=== PATIENT | male | born 1960 | race Caucasian/White ===

== ENCOUNTER 2020-12-06 21:09 | Inpatient (IN) | payer OTHER ==
[~2020-12-06] VITALS: Ht 177.8 cm; Wt 148.0 kg
[2020-12-06 21:15] VITALS: BP 140/90
[2020-12-06] MEDS: guaiFENesin DM 600/30MG 1 TAB TAB.ER.12H PO PRN (22:49)
[2020-12-06] MEDS: HYDROcodone/APAP 5/325MG 1 TAB TABLET PO PRN (22:54)
[2020-12-06] MEDS ORDERED: AZITHROMYCIN 500 MG in IV NORMAL SALINE 250ML 250 ML IV ONE (23:00)
[2020-12-06 23:26] VITALS: BP 168/91
[2020-12-07] MEDS ORDERED: TRIA1TAB5 PO (00:09)
[2020-12-07] MEDS ORDERED: AMLO-187 PO (00:09)
[2020-12-07] MEDS ORDERED: OMEP20TA8 PO (00:09)
[2020-12-07 03:00] VITALS: BP 138/78
[2020-12-07 07:00] VITALS: BP 138/82
[2020-12-07] MEDS ORDERED: FLU VACC QS 2020-21(6MOS+)/PF 0.5 ML SYRINGE. VAX IM ONE (09:00)
[2020-12-07] MEDS: DEXAMETHASONE SOD PHOS 4 MG/ML VIAL IVP SCH (09:41)
[2020-12-07] MEDS: HYDROcodone/APAP 5/325MG 1 TAB TABLET PO PRN ×3 (09:51→22:00)
[2020-12-07 11:00] VITALS: BP 125/86
--- NOTE | 2020-12-07 11:08 | PDOC ---
PULMONARY PROGRESS NOTES DATE: 12/07/20 TIME: 11:07 Vitals Vital Signs Date Time Temp Pulse Resp B/P (MAP) Pulse Ox O2 Delivery O2 Flow Rate FiO2 12/07/20 08:00 Nasal Cannula 4.0 12/07/20 07:00 96.6 64 138/82 (100) 96 96.6 12/07/20 03:00 20 Labs Laboratory Tests Test 12/06/20 23:30 12/07/20 04:00 Troponin I Quantitative 0.487 ng/mL (0.000-0.055) 0.444 ng/mL (0.000-0.055) Laboratory Tests Test 12/06/20 23:30 12/07/20 04:00 Troponin I Quantitative 0.487 ng/mL (0.000-0.055) 0.444 ng/mL (0.000-0.055) Medications Active Scripts Medications Dose Route/Sig Max Daily Dose Days Date Category Triamterene-Hctz 75-50 Mg Tab (Triamterene/Hydrochlorothiazid) 1 Each Tablet 0.5 Tab PO DAILY 12/07/20 Reported Omeprazole 20 Mg Tablet.dr 20 Mg PO DAILY 12/07/20 Reported Amlodipine Besylate 10 Mg Tablet 10 Mg PO DAILY 12/07/20 Reported Impression . CONSULT DICTATED AGREE WITH CURRENT RX SEE ORDERS TO FAR OUT FOR REMDESIVIR THanks LILA JEROME MD Dec 07, 2020 11:08
--- NOTE | 2020-12-07 11:36 | HP ---
ADMIT DATE: 12/06/2020 HISTORY OF PRESENT ILLNESS: The patient is a 60-year-old male patient who apparently tested positive about 9 days ago. His parents both were positive for coronavirus. In fact, his mother at [facility] recently. However, his and his son were negative. Apparently, he has been having shortness of breath for the past week. Apparently noticed that he was having hard time breathing and it was recommended for him to come to the Emergency Room by his primary care physician via telehealth. He stated that shortness of breath started worsening over the last 2-3 days. He thought that he was starting getting better; however, on the morning of admission he was having severe shortness of breath. He was unable to walk to the bathroom on his own. He was then directed to come to the Emergency Room where he was evaluated. Apparently, his pulse oximeter was only 80% at home. He has been taking [id number] medication at home. He was extensively evaluated in the Emergency Room, has had lab work as well as imaging studies. His lab work showed CBC that was unremarkable. His chemistry showed that his troponin was high at 0.537 and his C-reactive protein was high at 145 mg/dL. D-dimer was elevated at 1.41 and his toxic screen was unremarkable. His influenza A and B were negative. Has had chest x-ray, which showed patchy airspace opacities, which may reflect pneumonic infiltrate. Given his elevated D-dimer, he underwent CT angio of the chest, which basically showed no evidence of main lobar or proximal segmental pulmonary embolus. He has bilateral diffuse patchy consolidation and ground glass opacities compatible with atypical viral pneumonia. His mediastinal hilar lymphadenopathy, likely reactive, aneurysmal dilatation of the ascending aorta measuring up to 4.6 cm. The heart, pericardium and thoracic vessels with mild cardiomegaly with no pericardial effusion, has normal variant common origin of the brachiocephalic and left common carotid arteries. No coronary artery atherosclerotic calcification, although the study is not optimized for coronary assessment. He also has degenerative changes of thoracic spine. His abdomen showed mildly dilated gallbladder measuring up to 5.1 cm in diameter, nonspecific, but no secondary signs of acute cholecystitis. The patient was treated with IV antibiotic in the form of Rocephin and Zithromax and was given also dexamethasone and given his hypoxia and requirement for oxygen, a decision was made to transfer him to [facility] to continue with IV antibiotic. Continue with dexamethasone and consult the nurse auditor to assist with his management. PAST MEDICAL HISTORY: Unremarkable except for hypertension. PAST SURGICAL HISTORY: Significant for surgery of his right elbow and appendectomy and multiple hernia repairs. ALLERGIES: HE IS ALLERGIC TO PENICILLIN. MEDICATIONS: He is on amlodipine besylate 10 mg once a day, omeprazole 40 mg once a day, triamterene/hydrochlorothiazide 1 tablet once a day and aspirin 81 mg once a day. FAMILY HISTORY: His mother was recently because of the coronavirus pneumonia and acute hypoxic respiratory failure. His father tested positive, but he is asymptomatic and apparently doing well. He has other members of his family are positive, although his and son tested negative. SOCIAL HISTORY: He is , has 1 son. Quit smoking about 40 years ago. He does not drink alcohol or use recreational drugs. 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 REVIEW OF SYSTEMS: The patient denied any blurring of vision, cataract, glaucoma or macular degeneration. Denied any earache, tinnitus or sensorineural deafness. Denied any nosebleeds, stuffy nose or postnasal drip. Denied any sore throat, sore tongue, toothache, hoarseness of voice or difficulty swallowing. He lost sense of taste and smell, but denied any nausea or vomiting. He did have few episodes of diarrhea, but denied any hematemesis, melena or hematochezia. Denied any dysuria, frequency or hematuria. Denied any chest pain. Did complain of shortness of breath and cough that apparently has subsided after he was started on dexamethasone. Denied any dizziness, lightheadedness, or vertigo. Denied any chills, rigors or fever. PHYSICAL EXAMINATION: GENERAL: On arrival to the Emergency Room, he looked well and was clearly in no apparent respiratory distress. No pallor, jaundice, cyanosis or thyromegaly. No jugular venous distention or limb edema. VITAL SIGNS: His heart rate was 89, blood pressure was 125/77, temperature was 100.8, respiratory rate was 22 and oxygen saturation was 88% on room air and has improved to 95% on 4 liters of oxygen. HEAD, EYES, EARS, NOSE AND THROAT: Showed normocephalic, atraumatic. NECK: Supple. HEART: Normal first and second heart sounds. No gallop, rub or murmur. CHEST: Showed central trachea, equal bilateral chest expansion, air entry, vesicular breath sounds. I could not appreciate any crepitation or rhonchi. ABDOMEN: Distended, soft, nontender. NEUROLOGIC: He was awake, alert, responding appropriately. All cranial nerves intact. EXTREMITIES: He moves extremities without difficulty, ambulates without assistance or assistive devices. LABORATORY DATA: Showed a white cell count of 8800, hemoglobin 17.7, hematocrit 52, MCV 91, and platelet count 273,000. His manual differential shows 79% polymorphs, 12% lymphocytes, 9% monocytes. His D-dimer was 1.41. His chemistry showed a serum sodium 135, potassium 4.4, chloride 96, bicarbonate 28, anion gap of 11, BUN 22, creatinine 1, estimated GFR was 76 mL per minute, glucose 131, calcium was 8.6. Total bilirubin, ALT, alkaline phosphatase are normal. AST is slightly elevated. His CK was high at 939, troponin I at 0.537. C-reactive protein was 145.5 mg/dL. His beta natriuretic peptide was 133. Total protein 6.8, albumin was 3. Tox screen showed blood alcohol level to be less than 10. His influenza A and B were negative. His chest x-ray showed the patient has patchy airspace opacity, which may reflect pneumonic infiltrate. The CT angio of the chest showed no evidence of main lobar or proximal segmental pulmonary arterial thrombosis, mildly dilated main pulmonary artery measuring up to 3.3 cm in diameter, compatible with pulmonary arterial hypertension. The lung parenchyma, pleura and airways showed moderate peripherally predominant patchy consolidation and ground glass opacities throughout the bilateral lungs. No pleural effusion, central airways are patent, lower neck and lymph node and mediastinum and visualized thyroid gland within normal limits. Multiple prominent borderline large mediastinal lymph nodes,the largest of which measures up to 10 mm in short axis and enlarged right greater than left hilar lymph nodes measuring up to 13 mm in short axis. No axillary lymphadenopathy. The heart and pericardium and thoracic vessels showed mild cardiomegaly, no pericardial effusion. Aneurysmal dilatation of the ascending aorta measuring up to 4.6 x 4.4, had a normal variant of common origin of the brachiocephalic and left common carotid arteries. No coronary artery atherosclerotic calcification. Bones and soft tissue, there is degenerative changes of thoracic spine. ASSESSMENT AND PLAN: The patient was admitted with COVID-19 pneumonia and acute hypoxic respiratory failure. He also is known to have hypertension. The patient apparently had a sleep study, but was told that he has no obstructive sleep apnea, has a remote history of smoking cigarettes and he quit about 40 years ago. PLAN: My plan is to continue with IV Rocephin and Zithromax. Continue with dexamethasone. Has also elevated troponin, so I will consult the nurse auditor as well as the roll cleaner to assist with his management. CRIS KATHLEEN MD DR: MONICA/jose JOB#: [id number] / [id number]
[2020-12-07] MEDS: ZINC SULFATE 220 MG CAPSULE. PO SCH (13:13)
[2020-12-07] MEDS: CHOLECALCIFEROL (VITAMIN D3) 5,000 UNIT CAPSULE PO SCH (13:13)
[2020-12-07] MEDS: ASCORBIC ACID 1,000 MG TABLET PO SCH (13:13)
--- NOTE | 2020-12-07 13:46 | PDOC2 ---
CONSULT Date of Consult Date of Consult DATE: 12/07/20 TIME: 13:36 Reason for Consult Reason for Consult: Slightly elevated troponin level Referring Physician Referring Physician: Dr. 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 Since his cough kept getting worse, he presented to [facility] ED where chest x-ray showed diffuse patchy consolidation and groundglass opacities consistent with atypical viral pneumonia. He was transferred to [facility] for further treatment of Covid pneumonia. His troponin level was slightly elevated prompting cardiology consultation. He denied any chest pain as such. He also denied any palpitations or syncope. He does not have any prior history of coronary artery disease. Past Medical History Past Medical History Hypertension Past Surgical History Past Surgical History Right elbow surgery, appendectomy and multiple hernia repairs Family History Family History Negative for premature coronary disease Social History Social History Patient quit smoking 40 years ago. He denied any alcohol or drug abuse. Current Medications Current Medications Current Medications Dexamethasone Sodium Phosphate (Decadron) 6 mg DAILY IVP Last administered on 12/07/20at 09:41; Start 12/07/20 at 09:00 Ceftriaxone Sodium (Rocephin) 1 gm Q24H IVP ; Start 12/07/20 at 15:00 Azithromycin 250 mg/Sodium Chloride 250 ml @ 250 mls/hr Q24H IV ; Start 12/07/20 at 22:00 Enoxaparin Sodium (Lovenox 60mg Syringe) 60 mg Q12HR SQ Last administered on 12/07/20at 09:41; Start 12/06/20 at 23:00; Stop 12/07/20 at 11:06; Status DC Acetaminophen/ Hydrocodone Bitart (Lortab 5/325) 1 tab PRN Q4HRS PRN PO MODERATE PAIN 4-6 Last administered on 12/07/20at 09:51; Start 12/06/20 at 22:15 Guaifenesin (MUCINEX ER with DM) 1 tab PRN BID PRN PO COUGH Last administered on 12/06/20at 22:49; Start 12/06/20 at 22:15 Azithromycin 500 mg/Sodium Chloride 250 ml @ 250 mls/hr 1X ONCE IV Last adm inistered on 12/06/20at 22:50; Start 12/06/20 at 23:00; Stop 12/06/20 at 23:59; Status DC Influenza Virus Vaccine Quadrival (Fluzone Quad Syringe) 0.5 ml ONCE ONCE VAX IM ; Start 12/07/20 at 09:00; Stop 12/07/20 at 09:01; Status DC Lactobacillus Rhamnosus (Culturelle) 1 cap BID PO ; Start 12/07/20 at 21:00 Enoxaparin Sodium (Lovenox 40mg Syringe) 40 mg Q12HR SQ ; Start 12/07/20 at 21:00 Zinc Sulfate (Orazinc) 220 mg DAILY PO Last administered on 12/07/20at 13:13; Start 12/07/20 at 12:00 Vitamin D (Vitamin D3) 5,000 unit DAILY PO Last administered on 12/07/20at 13:13; Start 12/07/20 at 12:00 Ascorbic Acid (Vitamin C) 1,000 mg DAILY PO Last administered on 12/07/20at 13:13; Start 12/07/20 at 12:00 Active Scripts Active Reported Triamterene-Hctz 75-50 Mg Tab (Triamterene/Hydrochlorothiazid) 1 Each Tablet 0.5 Tab PO DAILY Omeprazole 20 Mg Tablet.dr 20 Mg PO DAILY Amlodipine Besylate 10 Mg Tablet 10 Mg PO DAILY Allergies Allergies: Coded Allergies: Penicillins (Verified Allergy, Intermediate, Rash, 12/07/20) ROS PSYCHOLOGICAL ROS: No: Hallucinations HEENT: No: Epistaxis Respiratory: YES: Cough, Shortness of breath; No: Orthopnea Cardiovascular: No Chest Pain Gastrointestinal: No Vomiting, No Diarrhea Genitourinary: No Hematuria Neurological: No Seizures Physical Exam General: Alert, Oriented X3 HEENT: Atraumatic Lungs: Other (Bilateral fine crepitations) Heart: Regular rate Extremities: No clubbing, No edema Psych/Mental Status: Mood NL Vitals VITALS Vital Signs Date Time Temp Pulse Resp B/P (MAP) Pulse Ox O2 Delivery O2 Flow Rate FiO2 12/07/20 11:00 97.2 61 18 125/86 (99) 96 Nasal Cannula 4.0 97.2 Labs Labs Laboratory Tests Test 12/06/20 23:30 12/07/20 04:00 Troponin I Quantitative 0.487 ng/mL (0.000-0.055) 0.444 ng/mL (0.000-0.055) Laboratory Tests Test 12/06/20 23:30 12/07/20 04:00 Troponin I Quantitative 0.487 ng/mL (0.000-0.055) 0.444 ng/mL (0.000-0.055) Assessment/Plan Assessment/Plan 1. Acute hypoxic respiratory failure secondary to Covid pneumonia. Continue current treatment per pulmonary team. 2. Slight troponin elevation probably demand ischemia. Patient denied any chest pain. We will plan for 2D echo to assess LV function and Lexiscan nuclear stress test to rule out ischemia once he is recovered from Covid, as an outpatient. 3. Hypertension: Controlled Thank you for your consultation LISANDRA UNDERWOOD MD Dec 07, 2020 13:46
--- NOTE | 2020-12-07 14:14 | CONS ---
DATE OF CONSULTATION: 12/07/2020 ATTENDING PHYSICIAN: Soheila Soares MD. CONSULTING PHYSICIAN: Sivan Estes MD. REASON FOR CONSULTATION: The patient is seen in pulmonary consultation at the request of Dr. Soares for acute hypoxemic respiratory failure related to COVID-19 viral pneumonia. HISTORY OF PRESENT ILLNESS: The patient is a 60-year-old who tested positive last Wednesday. He was exposed to his mother and father. In fact, his mother unfortunately was here hospitalized and . The patient started to feel worse over the last 24-36 hours, he lost his taste, body aches, cough, mostly nonproductive, increasing shortness of breath. He was found to be hypoxic in the Emergency Department at [facility]. He was placed on oxygen supplementation. The patient underwent a CT angiogram. I reviewed the CT angiogram. There was no evidence of pulmonary embolism. There was bilateral alveolar type of infiltrates. There was some mediastinal hilar adenopathy. He also has an incidental finding of aneurysm dilatation of the ascending aorta measuring 4.6 cm. The patient is currently on oxygen. He is undergoing treatment with steroids. He is receiving empiric antibiotics, ceftriaxone and Zithromax. He is on Lovenox deep venous thrombosis prophylaxis. PAST MEDICAL HISTORY: Hypertension, obesity, remote history of tobacco use. PAST SURGICAL HISTORY: Angioplasty, appendectomy and hernia repair. ALLERGIES: PENICILLIN. REVIEW OF SYSTEMS: As indicated above, otherwise, a 10-point system was reviewed and negative. SOCIAL HISTORY: He is currently not smoking, was exposed to family members with COVID-19. His mother recently here at [facility]. MEDICATION: List was reviewed. PHYSICAL EXAMINATION: VITAL SIGNS: Stable. O2 saturation was greater than 92%, currently on 4 liters. T-max is 99.2. HEENT: Eyes, the sclerae were nonicteric. NECK: Jugular venous distention was not elevated. No lymphadenopathy. CHEST: Full expansion. LUNGS: Coarse breath sounds, no wheezes. CARDIOVASCULAR: Regular rate and rhythm with S1, S2, no S3. ABDOMEN: Soft and nontender. Obese. EXTREMITIES: No clubbing, cyanosis, or edema. LABORATORY DATA: Reviewed from [facility]. A chest CT as indicated above. White count was normal. Hemoglobin and hematocrit of 17 and 52, platelet count was 273. D-dimer was 1.41. Albumin was low. Sodium was 135, potassium of 4.4. Troponin level was 0.537. Alcohol level was less than 10. Influenza screen was negative. IMPRESSION: 1. Acute hypoxemic respiratory failure, multifactorial. 2. Coronavirus disease-19 viral pneumonia. 3. Abnormal x-ray. 4. Possible bacterial pneumonia. 5. Morbid obesity. 6. Remote history of tobacco use. 7. Hypertension. 8. 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 PLAN: 1. We will continue support with IV antibiotics. 2. Steroids. 3. Oxygen supplementation. 4. The patient too far out to benefit from IV remdesivir. 5. DVT prophylaxis. 6. Recommend Cardiology consultation for incidental finding of aneurysm dilatation of the ascending aorta. 7. Nutritional support. I do appreciate the privilege in sharing in the patient's care. LILA JEROME MD DR: AURORA/jose JOB#: [id number] / [id number]
--- NOTE | 2020-12-07 14:18 | PN ---
DATE: 12/07/2020 SUBJECTIVE: The patient is resting, slightly propped up in bed, no apparent distress. He was sleepy, but arousable. On questioning him, he stated that he is feeling much better. He has had no more cough after he received his steroids yesterday. Denied any chest pain. Denied any dizziness, lightheadedness or vertigo. Denied any nausea, vomiting, diarrhea. He did continue to complain of loss of taste, he could not eat his breakfast this morning. OBJECTIVE: GENERAL: When I examined him, he looked well and was clearly in no apparent respiratory distress. No pallor, jaundice, cyanosis or thyromegaly. No jugular venous distention. No limb edema. VITAL SIGNS: His heart rate was 64, blood pressure was 138/82, temperature was 96.6, respiratory rate was 20, and oxygen saturation was 94% on 4 liters of oxygen by nasal cannula. HEAD, EYES, EARS, NOSE AND THROAT: Showed normocephalic, atraumatic. NECK: Supple. HEART: Showed normal first and second heart sounds with no gallop, rub or murmur. CHEST: Clear to auscultation. No crepitation or rhonchi. ABDOMEN: Distended, soft, nontender. NEUROLOGIC: He was awake, alert, responding appropriately. All cranial nerves are intact. He moves extremities without difficulty. LABORATORY AND DIAGNOSTIC DATA: The patient has 2 more sets of cardiac enzymes, which showed troponin to be trending down from 0.487 and 0.444. ASSESSMENT: 1. COVID-19 pneumonia. 2. Acute hypoxic respiratory failure. 3. Hypertension. PLAN: My plan is to continue with IV antibiotic, continue with dexamethasone, continue with Lovenox. I will consult the bonderite operator as well as the pulmonologist intensivist. CRIS KATHLEEN MD DR: MONICA/jose JOB#: [id number] / [id number]
[2020-12-07 15:00] VITALS: BP 132/72
[2020-12-07] MEDS: cefTRIAXone IV Push 1 GM VIAL. IVP SCH (15:03)
[2020-12-07] MEDS: guaiFENesin DM 600/30MG 1 TAB TAB.ER.12H PO PRN (17:21)
[2020-12-07 19:48] VITALS: BP 132/80
[2020-12-07] MEDS: AZITHROMYCIN 250 MG in IV NORMAL SALINE 250ML 250 ML IV SCH (21:59)
[2020-12-07] MEDS: LACTOBACILLUS RHAMNOSUS GG 1 CAPSULE. PO SCH (22:00)
[2020-12-07] MEDS: ENOXAPARIN 40 MG/0.4 ML SYRINGE. SQ SCH (22:00)
[2020-12-07 23:16] VITALS: BP 123/80
[2020-12-08] MEDS: HYDROcodone/APAP 5/325MG 1 TAB TABLET PO PRN ×3 (02:45→21:42)
[2020-12-08 03:09] VITALS: BP_SYST 144; BP_SYST 78; BP_DIAS 80
[2020-12-08 04:42] LABS: HEMATOCRIT 45.7 % (39.0-53.0); HEMOGLOBIN 15.9 g/dL (13.0-17.5); RED BLOOD COUNT 5.06 x10^6/uL (4.30-5.70); RED CELL DISTRIBUTION WIDTH 12.6 % (11.5-14.5); WHITE BLOOD COUNT 13.7 x10^3/uL (4.0-11.0)
[2020-12-08 05:01] LABS: ALBUMIN 2.4 g/dL (3.4-5.0); ALBUMIN/GLOBULIN RATIO 0.6 (1.0-1.7); CALCIUM 8.8 mg/dL (8.5-10.1); CREATININE 1.1 mg/dL (0.7-1.3); GFR 68.8; POTASSIUM 4.1 mmol/L (3.5-5.1); TOTAL BILIRUBIN 0.4 mg/dL (0.2-1.0); TOTAL PROTEIN 6.4 g/dL (6.4-8.2)
[2020-12-08 07:00] VITALS: BP 124/77
[2020-12-08] MEDS: ASCORBIC ACID 1,000 MG TABLET PO SCH (08:56)
[2020-12-08] MEDS: ZINC SULFATE 220 MG CAPSULE. PO SCH (08:56)
[2020-12-08] MEDS: CHOLECALCIFEROL (VITAMIN D3) 5,000 UNIT CAPSULE PO SCH (08:56)
[2020-12-08] MEDS: DEXAMETHASONE SOD PHOS 4 MG/ML VIAL IVP SCH (08:56)
[2020-12-08] MEDS: ENOXAPARIN 40 MG/0.4 ML SYRINGE. SQ SCH ×2 (08:56→20:00)
[2020-12-08] MEDS: LACTOBACILLUS RHAMNOSUS GG 1 CAPSULE. PO SCH ×2 (09:00→20:00)
[2020-12-08] MEDS: guaiFENesin DM 600/30MG 1 TAB TAB.ER.12H PO PRN ×2 (09:08→22:57)
--- NOTE | 2020-12-08 10:38 | PDOC ---
PULMONARY PROGRESS NOTES DATE: 12/08/20 TIME: 10:35 Subjective Patient is resting comfortably on 5 L nasal cannula reports some exertional shortness of breath Denies any cough or chest pain Afebrile No overnight concerns per nursing Vitals Vital Signs Date Time Temp Pulse Resp B/P (MAP) Pulse Ox O2 Delivery O2 Flow Rate FiO2 12/08/20 08:00 Nasal Cannula 4.0 12/08/20 07:00 96.1 56 20 124/77 (93) 96 96.1 Comments Seen during COVID pandemic, visual exam performed On nasal cannula oxygen Obese Regular rate and rhythm No respiratory distress or accessory muscle use No edema no rash Labs Laboratory Tests Test 12/06/20 23:30 12/07/20 04:00 12/08/20 04:10 Troponin I Quantitative 0.487 ng/mL (0.000-0.055) 0.444 ng/mL (0.000-0.055) White Blood Count 13.7 x10^3/uL (4.0-11.0) Red Blood Count 5.06 x10^6/uL (4.30-5.70) Hemoglobin 15.9 g/dL (13.0-17.5) Hematocrit 45.7 % (39.0-53.0) Mean Corpuscular Volume 90 fL (79-100) Mean Corpuscular Hemoglobin 31 pg (25-35) Mean Corpuscular Hemoglobin Concent 35 g/dL (31-37) Red Cell Distribution Width 12.6 % (11.5-14.5) Platelet Count 285 x10^3/uL (140-400) Sodium Level 134 mmol/L (136-145) Potassium Level 4.1 mmol/L (3.5-5.1) Chloride Level 98 mmol/L (98-107) Carbon Dioxide Level 30 mmol/L (21-32) Anion Gap 6 (6-14) Blood Urea Nitrogen 38 mg/dL (8-26) Creatinine 1.1 mg/dL (0.7-1.3) Estimated GFR (Cockcroft-Gault) 68.8 BUN/Creatinine Ratio 35 (6-20) Glucose Level 188 mg/dL (70-99) Calcium Level 8.8 mg/dL (8.5-10.1) Total Bilirubin 0.4 mg/dL (0.2-1.0) Aspartate Amino Transf (AST/SGOT) 49 U/L (15-37) Alanine Aminotransferase (ALT/SGPT) 48 U/L (16-63) Alkaline Phosphatase 73 U/L (46-116) Total Protein 6.4 g/dL (6.4-8.2) Albumin 2.4 g/dL (3.4-5.0) Albumin/Globulin Ratio 0.6 (1.0-1.7) Laboratory Tests Test 12/08/20 04:10 White Blood Count 13.7 x10^3/uL (4.0-11.0) Red Blood Count 5.06 x10^6/uL (4.30-5.70) Hemoglobin 15.9 g/dL (13.0-17.5) Hematocrit 45.7 % (39.0-53.0) Mean Corpuscular Volume 90 fL (79-100) Mean Corpuscular Hemoglobin 31 pg (25-35) Mean Corpuscular Hemoglobin Concent 35 g/dL (31-37) Red Cell Distribution Width 12.6 % (11.5-14.5) Platelet Count 285 x10^3/uL (140-400) Sodium Level 134 mmol/L (136-145) Potassium Level 4.1 mmol/L (3.5-5.1) Chloride Level 98 mmol/L (98-107) Carbon Dioxide Level 30 mmol/L (21-32) Anion Gap 6 (6-14) Blood Urea Nitrogen 38 mg/dL (8-26) Creatinine 1.1 mg/dL (0.7-1.3) Estimated GFR (Cockcroft-Gault) 68.8 BUN/Creatinine Ratio 35 (6-20) Glucose Level 188 mg/dL (70-99) Calcium Level 8.8 mg/dL (8.5-10.1) Total Bilirubin 0.4 mg/dL (0.2-1.0) Aspartate Amino Transf (AST/SGOT) 49 U/L (15-37) Alanine Aminotransferase (ALT/SGPT) 48 U/L (16-63) Alkaline Phosphatase 73 U/L (46-116) Total Protein 6.4 g/dL (6.4-8.2) Albumin 2.4 g/dL (3.4-5.0) Albumin/Globulin Ratio 0.6 (1.0-1.7) Medications Active Scripts Medications Dose Route/Sig Max Daily Dose Days Date Category Triamterene-Hctz 75-50 Mg Tab (Triamterene/Hydrochlorothiazid) 1 Each Tablet 0.5 Tab PO DAILY 12/07/20 Reported Omeprazole 20 Mg Tablet.dr 20 Mg PO DAILY 12/07/20 Reported Amlodipine Besylate 10 Mg Tablet 10 Mg PO DAILY 12/07/20 Reported Impression . IMPRESSION: 1. Acute hypoxemic respiratory failure, multifactorial. 2. Coronavirus disease-19 viral pneumonia. 3. Abnormal x-ray. 4. Possible bacterial pneumonia. 5. Morbid obesity. 6. Remote history of tobacco use. 7. Hypertension. 8. 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 Plan . PLAN: Continue supplemental oxygen to keep oxygen saturations greater than 92%, currently on 5 L nasal cannula 6-minute walk prior to discharge Patient is too far out to benefit from IV remdesivir Continue steroids will need a full 10-day course, taper slowly Follow cardiology recommendations in regards to aneurysm Out of bed as tolerated, physical therapy/Occupational Therapy DVT/GI prophylaxis Discussed with LILA JOHNSON MD Dec 08, 2020 10:38
--- NOTE | 2020-12-08 10:44 | PDOC ---
PROGRESS NOTES Date of Service: DATE: 12/08/20 TIME: 10:43 Subjective Subjective Dyspnea slightly better. Denied any chest pain. Objective Objective Vital Signs Date Time Temp Pulse Resp B/P (MAP) Pulse Ox O2 Delivery O2 Flow Rate FiO2 12/08/20 08:00 Nasal Cannula 4.0 12/08/20 07:00 96.1 56 20 124/77 (93) 96 96.1 Intake and Output 12/08/20 07:00 Intake Total 2700 ml Output Total 900 ml Balance 1800 ml Intake Oral 2700 ml Output Urine Total 900 ml # Voids 2 Physical Exam Heart: Regular rate Extremities: No clubbing, No edema General: Alert, Oriented X3 HEENT: Atraumatic Lungs: Other (Bilateral fine crepitations) Psych/Mental Status: Mood NL Assessment Assessment 1. Acute hypoxic respiratory failure secondary to Covid pneumonia. Continue current treatment per pulmonary team. 2. Slight troponin elevation probably demand ischemia. Patient denied any chest pain. We will plan for 2D echo to assess LV function and Lexiscan nuclear stress test to rule out ischemia once he is recovered from Covid, as an outpatient. 3. Hypertension: Controlled Comment Review of Relevant I have reviewed the following items maicol (where applicable) has been applied. Labs Laboratory Tests Test 12/08/20 04:10 White Blood Count 13.7 x10^3/uL (4.0-11.0) Red Blood Count 5.06 x10^6/uL (4.30-5.70) Hemoglobin 15.9 g/dL (13.0-17.5) Hematocrit 45.7 % (39.0-53.0) Mean Corpuscular Volume 90 fL (79-100) Mean Corpuscular Hemoglobin 31 pg (25-35) Mean Corpuscular Hemoglobin Concent 35 g/dL (31-37) Red Cell Distribution Width 12.6 % (11.5-14.5) Platelet Count 285 x10^3/uL (140-400) Sodium Level 134 mmol/L (136-145) Potassium Level 4.1 mmol/L (3.5-5.1) Chloride Level 98 mmol/L (98-107) Carbon Dioxide Level 30 mmol/L (21-32) Anion Gap 6 (6-14) Blood Urea Nitrogen 38 mg/dL (8-26) Creatinine 1.1 mg/dL (0.7-1.3) Estimated GFR (Cockcroft-Gault) 68.8 BUN/Creatinine Ratio 35 (6-20) Glucose Level 188 mg/dL (70-99) Calcium Level 8.8 mg/dL (8.5-10.1) Total Bilirubin 0.4 mg/dL (0.2-1.0) Aspartate Amino Transf (AST/SGOT) 49 U/L (15-37) Alanine Aminotransferase (ALT/SGPT) 48 U/L (16-63) Alkaline Phosphatase 73 U/L (46-116) Total Protein 6.4 g/dL (6.4-8.2) Albumin 2.4 g/dL (3.4-5.0) Albumin/Globulin Ratio 0.6 (1.0-1.7) Medications Current Medications Ascorbic Acid (Vitamin C) 1,000 mg DAILY PO Last administered on 12/08/20 08:56; Start 12/07/20 at 12:00 Azithromycin 250 mg/Sodium Chloride 250 ml @ 250 mls/hr Q24H IV Last administered on 12/07/20at 21:59; Start 12/07/20 at 22:00 Ceftriaxone Sodium (Rocephin) 1 gm Q24H IVP Last administered on 12/07/20at 15:03; Start 12/07/20 at 15:00 Enoxaparin Sodium (Lovenox 40mg Syringe) 40 mg Q12HR SQ Last administered on 08:56; Start 12/07/20 at 21:00 Lactobacillus Rhamnosus (Culturelle) 1 cap BID PO Last administered on 12/08/20at 09:00; Start 12/07/20 at 21:00 Vitamin D (Vitamin D3) 5,000 unit DAILY PO Last administered on 12/08/20 08:56; Start 12/07/20 at 12:00 Zinc Sulfate (Orazinc) 220 mg DAILY PO Last administered on 12/08/20 08:56; Start 12/07/20 at 12:00 Vitals/I & O Vital Sign - Last 24 Hours 12/07/20 12/07/20 12/07/20 12/07/20 11:00 15:00 18:21 19:48 Temp 97.2 98.0 97.5 97.2 98.0 97.5 Pulse 61 70 67 Resp 18 16 B/P (MAP) 125/86 (99) 132/72 (92) 132/80 (97) Pulse Ox 96 96 93 93 O2 Delivery Nasal Cannula Nasal Cannula Nasal Cannula Nasal Cannula O2 Flow Rate 4.0 5.0 4.0 12/07/20 12/07/20 12/07/20 12/07/20 20:02 22:00 23:00 23:16 Temp 97.8 97.8 Pulse 58 Resp 16 B/P (MAP) 123/80 (94) Pulse Ox 93 95 95 O2 Delivery Nasal Cannula Nasal Cannula Nasal Cannula Nasal Cannula O2 Flow Rate 5.0 5.0 4.0 4.0 12/08/20 12/08/20 12/08/20 12/08/20 02:45 03:09 03:45 07:00 Temp 97.9 96.1 97.9 96.1 Pulse 58 56 Resp 20 20 B/P (MAP) 144/80 (101) 124/77 (93) Pulse Ox 95 94 94 96 O2 Delivery Nasal Cannula Nasal Cannula Nasal Cannula Nasal Cannula O2 Flow Rate 4.0 4.0 4.0 4.0 12/08/20 12/08/20 07:00 08:00 Temp 96.1 96.1 Pulse 56 Resp 20 B/P (MAP) 124/77 (93) Pulse Ox 96 O2 Delivery Nasal Cannula Nasal Cannula O2 Flow Rate 4.0 4.0 Intake and Output 12/07/20 12/07/20 12/08/20 15:00 23:00 07:00 Intake Total 240 ml 1100 ml 1360 ml Output Total 300 ml 600 ml Balance -60 ml 1100 ml 760 ml LISANDRA UNDERWOOD MD Dec 08, 2020 10:44
[2020-12-08 11:05] VITALS: BP 120/86
--- NOTE | 2020-12-08 11:26 | PN ---
DATE: 12/08/2020 SUBJECTIVE: The patient is resting, slightly propped up in bed, in no apparent distress, awake, alert. On questioning him, he denied any complaint. PHYSICAL EXAMINATION: GENERAL: When I examined him, he looked well and was clearly in no apparent respiratory distress. No pallor, jaundice, cyanosis or thyromegaly. No jugular venous distention. No limb edema. VITAL SIGNS: His heart rate was 56, blood pressure was 124/77, temperature was 96.1, respiratory rate 20, and oxygen saturation was 96% on 4 liters of oxygen. HEAD, EYES, EARS, NOSE AND THROAT: Showed normocephalic, atraumatic. NECK: Supple. HEART: Showed normal first and second heart sounds. No gallop, rub or murmur. CHEST: Clear to auscultation. No crepitation or rhonchi. ABDOMEN: Distended, soft, nontender. NEUROLOGIC: He was grossly intact. His intake and output are incompletely recorded. LABORATORY DATA: Her lab work this morning showed a white cell count of 13,700, hemoglobin 16, hematocrit 45, MCV 90, and platelet count 285,000. Serum sodium was 134, potassium 4.1, chloride 98, bicarbonate 30, anion gap of 6, BUN 38, creatinine 1.1, estimated GFR was 68 mL per minute. His glucose 188, calcium was 8.8. Total bilirubin, ALT, alkaline phosphatase are normal. AST slightly elevated. Total protein 6.4, albumin 2.4. ASSESSMENT: 1. COVID-19 pneumonia. 2. Acute hypoxic respiratory failure. 3. Hypertension. PLAN: 1. To continue with oxygen supplementation. 2. Continue with IV antibiotic. 3. Continue with dexamethasone. 4. Continue with Lovenox. The patient was seen by the regional safety manager who felt that elevated troponin due to demand ischemia and arrangement will be made for him to be seen as an outpatient for a stress test and echocardiogram once he recovers from coronavirus infection. CRIS KATHLEEN MD DR: MONICA/jose JOB#: [id number] / [id number]
[2020-12-08 15:00] VITALS: BP 148/96
[2020-12-08] MEDS: cefTRIAXone IV Push 1 GM VIAL. IVP SCH (15:36)
[2020-12-08] MEDS: DIPHENOXYLATE/ATROPINE TABLET. PO PRN ×2 (18:04→22:57)
[2020-12-08 19:44] VITALS: BP 133/87
[2020-12-08] MEDS: AZITHROMYCIN 250 MG in IV NORMAL SALINE 250ML 250 ML IV SCH (21:43)
[2020-12-08 23:25] VITALS: BP 133/89
[2020-12-09 03:29] VITALS: BP 133/76
--- NOTE | 2020-12-09 06:07 | NUR ---
Last documented fever 102.3 Tylenol given, Zofran given x2 N/V, and two loose diarrhea stools, will continue to monitor. Addendum: 12/09/20 at 0613 by WINSTON LEE RN Documented on wrong patient
[2020-12-09 07:00] VITALS: BP 130/89
[2020-12-09 08:21] LABS: HEMATOCRIT 46.5 % (39.0-53.0); HEMOGLOBIN 15.6 g/dL (13.0-17.5); RED BLOOD COUNT 5.12 x10^6/uL (4.30-5.70); RED CELL DISTRIBUTION WIDTH 12.6 % (11.5-14.5); WHITE BLOOD COUNT 10.9 x10^3/uL (4.0-11.0)
[2020-12-09 08:25] LABS: ALBUMIN 2.4 g/dL (3.4-5.0); ALBUMIN/GLOBULIN RATIO 0.6 (1.0-1.7); CALCIUM 8.7 mg/dL (8.5-10.1); CREATININE 0.9 mg/dL (0.7-1.3); GFR 86.7; POTASSIUM 4.4 mmol/L (3.5-5.1); TOTAL BILIRUBIN 0.4 mg/dL (0.2-1.0); TOTAL PROTEIN 6.3 g/dL (6.4-8.2)
--- NOTE | 2020-12-09 08:51 | PDOC ---
PULMONARY PROGRESS NOTES DATE: 12/09/20 TIME: 08:49 Subjective Patient is resting comfortably on 4 L nasal cannula Denies any shortness of breath, or increased cough or chest pain Feeling better after showering this morning Afebrile No overnight concerns per nursing Vitals Vital Signs Date Time Temp Pulse Resp B/P (MAP) Pulse Ox O2 Delivery O2 Flow Rate FiO2 12/09/20 03:29 97.7 54 16 133/76 (95) 94 Nasal Cannula 4.0 97.7 Comments Seen during ID pandemic, visual exam performed On nasal cannula oxygen Obese Regular rate and rhythm No respiratory distress or accessory muscle use No edema no rash Labs Laboratory Tests Test 12/08/20 04:10 12/09/20 07:38 White Blood Count 13.7 x10^3/uL (4.0-11.0) 10.9 x10^3/uL (4.0-11.0) Red Blood Count 5.06 x10^6/uL (4.30-5.70) 5.12 x10^6/uL (4.30-5.70) Hemoglobin 15.9 g/dL (13.0-17.5) 15.6 g/dL (13.0-17.5) Hematocrit 45.7 % (39.0-53.0) 46.5 % (39.0-53.0) Mean Corpuscular Volume 90 fL (79-100) 91 fL (79-100) Mean Corpuscular Hemoglobin 31 pg (25-35) 31 pg (25-35) Mean Corpuscular Hemoglobin Concent 35 g/dL (31-37) 34 g/dL (31-37) Red Cell Distribution Width 12.6 % (11.5-14.5) 12.6 % (11.5-14.5) Platelet Count 285 x10^3/uL (140-400) 326 x10^3/uL (140-400) Sodium Level 134 mmol/L (136-145) 136 mmol/L (136-145) Potassium Level 4.1 mmol/L (3.5-5.1) 4.4 mmol/L (3.5-5.1) Chloride Level 98 mmol/L (98-107) 98 mmol/L (98-107) Carbon Dioxide Level 30 mmol/L (21-32) 32 mmol/L (21-32) Anion Gap 6 (6-14) 6 (6-14) Blood Urea Nitrogen 38 mg/dL (8-26) 27 mg/dL (8-26) Creatinine 1.1 mg/dL (0.7-1.3) 0.9 mg/dL (0.7-1.3) Estimated GFR (Cockcroft-Gault) 68.8 86.7 BUN/Creatinine Ratio 35 (6-20) 30 (6-20) Glucose Level 188 mg/dL (70-99) 173 mg/dL (70-99) Calcium Level 8.8 mg/dL (8.5-10.1) 8.7 mg/dL (8.5-10.1) Total Bilirubin 0.4 mg/dL (0.2-1.0) 0.4 mg/dL (0.2-1.0) Aspartate Amino Transf (AST/SGOT) 49 U/L (15-37) 30 U/L (15-37) Alanine Aminotransferase (ALT/SGPT) 48 U/L (16-63) 47 U/L (16-63) Alkaline Phosphatase 73 U/L (46-116) 72 U/L (46-116) Total Protein 6.4 g/dL (6.4-8.2) 6.3 g/dL (6.4-8.2) Albumin 2.4 g/dL (3.4-5.0) 2.4 g/dL (3.4-5.0) Albumin/Globulin Ratio 0.6 (1.0-1.7) 0.6 (1.0-1.7) D-Dimer (Celeste) 0.67 ug/mlFEU (0.00-0.50) Laboratory Tests Test 12/09/20 07:38 White Blood Count 10.9 x10^3/uL (4.0-11.0) Red Blood Count 5.12 x10^6/uL (4.30-5.70) Hemoglobin 15.6 g/dL (13.0-17.5) Hematocrit 46.5 % (39.0-53.0) Mean Corpuscular Volume 91 fL (79-100) Mean Corpuscular Hemoglobin 31 pg (25-35) Mean Corpuscular Hemoglobin Concent 34 g/dL (31-37) Red Cell Distribution Width 12.6 % (11.5-14.5) Platelet Count 326 x10^3/uL (140-400) D-Dimer (Celeste) 0.67 ug/mlFEU (0.00-0.50) Sodium Level 136 mmol/L (136-145) Potassium Level 4.4 mmol/L (3.5-5.1) Chloride Level 98 mmol/L (98-107) Carbon Dioxide Level 32 mmol/L (21-32) Anion Gap 6 (6-14) Blood Urea Nitrogen 27 mg/dL (8-26) Creatinine 0.9 mg/dL (0.7-1.3) Estimated GFR (Cockcroft-Gault) 86.7 BUN/Creatinine Ratio 30 (6-20) Glucose Level 173 mg/dL (70-99) Calcium Level 8.7 mg/dL (8.5-10.1) Total Bilirubin 0.4 mg/dL (0.2-1.0) Aspartate Amino Transf (AST/SGOT) 30 U/L (15-37) Alanine Aminotransferase (ALT/SGPT) 47 U/L (16-63) Alkaline Phosphatase 72 U/L (46-116) Total Protein 6.3 g/dL (6.4-8.2) Albumin 2.4 g/dL (3.4-5.0) Albumin/Globulin Ratio 0.6 (1.0-1.7) Medications Active Scripts Medications Dose Route/Sig Max Daily Dose Days Date Category Triamterene-Hctz 75-50 Mg Tab (Triamterene/Hydrochlorothiazid) 1 Each Tablet 0.5 Tab PO DAILY 12/07/20 Reported Omeprazole 20 Mg Tablet.dr 20 Mg PO DAILY 12/07/20 Reported Amlodipine Besylate 10 Mg Tablet 10 Mg PO DAILY 12/07/20 Reported Impression . IMPRESSION: 1. Acute hypoxemic respiratory failure, multifactorial. 2. Coronavirus disease-19 viral pneumonia. 3. Abnormal x-ray. 4. Possible bacterial pneumonia. 5. Morbid obesity. 6. Remote history of tobacco use. 7. Hypertension. 8. 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 Plan . PLAN: Continue supplemental oxygen to keep oxygen saturations greater than 92%, currently on 4 L nasal cannula 6-minute walk prior to discharge Continue antibiotics for full course currently on Rocephin and azithromycin Continue steroids will need a full 10-day course, taper slowly Follow cardiology recommendations in regards to aneurysm--cardiology has recommended outpatient follow-up once Covid recovered Out of bed as tolerated, physical therapy/Occupational Therapy DVT/GI prophylaxis Discussed with RN Okay to discharge home from today from our standpoint, once completed 6-minute walk LILA JEROME MD Dec 09, 2020 08:51
[2020-12-09] MEDS: ZINC SULFATE 220 MG CAPSULE. PO SCH (10:34)
[2020-12-09] MEDS: CHOLECALCIFEROL (VITAMIN D3) 5,000 UNIT CAPSULE PO SCH (10:34)
[2020-12-09] MEDS: LACTOBACILLUS RHAMNOSUS GG 1 CAPSULE. PO SCH (10:34)
[2020-12-09] MEDS: ENOXAPARIN 40 MG/0.4 ML SYRINGE. SQ SCH (10:35)
[2020-12-09] MEDS: ASCORBIC ACID 1,000 MG TABLET PO SCH (10:36)
[2020-12-09] MEDS: DEXAMETHASONE SOD PHOS 4 MG/ML VIAL IVP SCH (10:36)
[2020-12-09 11:00] VITALS: BP 140/81
--- NOTE | 2020-12-09 11:46 | PN ---
DATE: 12/09/2020 SUBJECTIVE: The patient is resting, slightly propped up in bed, in no apparent distress. On questioning him, he denied any complaints. He did have an episode of diarrhea last night that has resolved. Denied any chest pain. PHYSICAL EXAMINATION: GENERAL: When I examined him this morning, he looked well and was clearly in no apparent respiratory distress. No pallor, jaundice, cyanosis or thyromegaly. No jugular venous distention. No lower limb edema. VITAL SIGNS: His heart rate was 53, blood pressure was 130/89, temperature was 97.7, respiratory rate was 16 and oxygen saturation was 95% on 4 liters of oxygen. HEAD, EYES, EARS, NOSE AND THROAT: Showed normocephalic, atraumatic. NECK: Supple. HEART: Showed normal first and second heart sounds. No gallop, rub or murmur. CHEST: Clear to auscultation. No crepitation or rhonchi. ABDOMEN: Distended, soft, nontender. NEUROLOGIC: He is grossly intact. His intake was 2700, output was 900. LABORATORY DATA: His lab work this morning showed a white cell count of 10,900, hemoglobin 15.6, hematocrit 46, MCV was 91, and platelet count 326,000. His chemistry showed a serum sodium 136, potassium 4.4, chloride 98, bicarbonate 32, anion gap of 6, BUN 27, creatinine was 0.9, estimated GFR was 86 mL per minute. His glucose was 173, calcium was 8.7. Total bilirubin, AST, ALT, alkaline phosphatase were normal. Total protein was 6.3, albumin 2.4. ASSESSMENT: 1. COVID-19 pneumonia. 2. Acute hypoxic respiratory failure. 3. Hypertension. 4. Morbid obesity. PLAN: My plan is to do a 6-minute walk and the patient can be discharged home with oxygen. I wrote a prescription for tapering course of dexamethasone as well as cefdinir and Zithromax. CRIS KATHLEEN MD DR: MONICA/jose JOB#: [id number] / [id number]
--- NOTE | 2020-12-09 12:48 | NUR ---
SW following for discharge planning. Spoke with RN and reviewed chart. Pt from home. PT recommendation is home, independent. 6 min walk indicated 02 needs on discharge. Pt stated no preference in provider. Pt choice of vendor form completed. Referral sent to Francie with [employer]. 02 tank delivered to RN to give to pt. Pt instructed to call the number on the tank upon arrival home for home 02 setup. Pt to discharge today, self-care. No further SW needs at this time. Addendum: 12/09/20 at 1604 by MONIE SCHWARTZ LANA confirmed 02 referral received by Francie.
[2020-12-09] MEDS ORDERED: DEXA6TAB6 PO (13:45)
[2020-12-09] MEDS ORDERED: AZIT250T PO (13:45)
[2020-12-09] MEDS ORDERED: CEFD300C PO (13:45)
[2020-12-09] MEDS: cefTRIAXone IV Push 1 GM VIAL. IVP SCH (14:37)
--- NOTE | 2020-12-09 14:48 | PDOC ---
PROGRESS NOTES Date of Service: DATE: 12/09/20 TIME: 14:47 Subjective Subjective Patient apparently had an episode of diarrhea last night. Denies any chest pain. Dyspnea improved. Objective Objective Vital Signs Date Time Temp Pulse Resp B/P (MAP) Pulse Ox O2 Delivery O2 Flow Rate FiO2 12/09/20 11:00 97.2 52 16 140/81 (100) 95 Nasal Cannula 4.0 97.2 Intake and Output 12/09/20 07:00 Intake Total 1820 ml Output Total 800 ml Balance 1020 ml Intake Oral 1820 ml Output Urine Total 800 ml # Voids 1 # Bowel Movements 3 Physical Exam Heart: Regular rate Extremities: No clubbing, No edema General: Alert, Oriented X3 HEENT: Atraumatic Lungs: Other (Bilateral fine crepitations) Psych/Mental Status: Mood NL Assessment Assessment 1. Acute hypoxic respiratory failure secondary to Covid pneumonia. Continue current treatment per pulmonary team. 2. Slight troponin elevation probably demand ischemia. Patient denied any chest pain. We will plan for 2D echo to assess LV function and Lexiscan nuclear stress test to rule out ischemia once he is recovered from Covid, as an outpatient. 3. Hypertension: Controlled Possible DC home today. Comment Review of Relevant I have reviewed the following items maicol (where applicable) has been applied. Labs Laboratory Tests Test 12/09/20 07:38 White Blood Count 10.9 x10^3/uL (4.0-11.0) Red Blood Count 5.12 x10^6/uL (4.30-5.70) Hemoglobin 15.6 g/dL (13.0-17.5) Hematocrit 46.5 % (39.0-53.0) Mean Corpuscular Volume 91 fL (79-100) Mean Corpuscular Hemoglobin 31 pg (25-35) Mean Corpuscular Hemoglobin Concent 34 g/dL (31-37) Red Cell Distribution Width 12.6 % (11.5-14.5) Platelet Count 326 x10^3/uL (140-400) D-Dimer (Celeste) 0.67 ug/mlFEU (0.00-0.50) Sodium Level 136 mmol/L (136-145) Potassium Level 4.4 mmol/L (3.5-5.1) Chloride Level 98 mmol/L (98-107) Carbon Dioxide Level 32 mmol/L (21-32) Anion Gap 6 (6-14) Blood Urea Nitrogen 27 mg/dL (8-26) Creatinine 0.9 mg/dL (0.7-1.3) Estimated GFR (Cockcroft-Gault) 86.7 BUN/Creatinine Ratio 30 (6-20) Glucose Level 173 mg/dL (70-99) Calcium Level 8.7 mg/dL (8.5-10.1) Total Bilirubin 0.4 mg/dL (0.2-1.0) Aspartate Amino Transf (AST/SGOT) 30 U/L (15-37) Alanine Aminotransferase (ALT/SGPT) 47 U/L (16-63) Alkaline Phosphatase 72 U/L (46-116) Total Protein 6.3 g/dL (6.4-8.2) Albumin 2.4 g/dL (3.4-5.0) Albumin/Globulin Ratio 0.6 (1.0-1.7) Medications Current Medications Diphenoxylate HCl/ Atropine (Lomotil) 1 tab PRN QID PRN PO DIARRHEA Last administered on 12/08/20at 18:04; Start 12/08/20 at 17:45 Vitals/I & O Vital Sign - Last 24 Hours 12/08/20 12/08/20 12/08/20 12/08/20 15:00 19:44 20:20 21:42 Temp 96.8 97.8 96.8 97.8 Pulse 57 61 Resp 22 16 B/P (MAP) 148/96 (113) 133/87 (102) Pulse Ox 95 94 94 O2 Delivery Nasal Cannula Nasal Cannula Nasal Cannula Nasal Cannula O2 Flow Rate 4.0 4.0 4.0 4.0 12/08/20 12/08/20 12/09/20 12/09/20 22:42 23:25 03:29 07:00 Temp 97.9 97.7 97.7 97.9 97.7 97.7 Pulse 52 54 53 Resp 16 16 B/P (MAP) 133/89 (104) 133/76 (95) 130/89 (103) Pulse Ox 92 92 94 O2 Delivery Nasal Cannula Nasal Cannula Nasal Cannula Nasal Cannula O2 Flow Rate 4.0 4.0 4.0 4.0 12/09/20 11:00 Temp 97.2 97.2 Pulse 52 Resp 16 B/P (MAP) 140/81 (100) Pulse Ox 95 O2 Delivery Nasal Cannula O2 Flow Rate 4.0 Intake and Output 12/08/20 12/08/20 12/09/20 15:00 23:00 07:00 Intake Total 1100 ml 240 ml 480 ml Output Total 500 ml 300 ml Balance 1100 ml -260 ml 180 ml LISANDRA UNDERWOOD MD Dec 09, 2020 14:48
[2020-12-09 15:00] VITALS: BP 148/96
--- NOTE | 2020-12-09 16:19 | NUR ---
Discharge instructions given to pt regarding follow up appointments. Contact information given. Education given over Covid-19 isolation/discharge instructions, oxygen, and medications. Pt informed of how to us oxygen tank and to call oxygen company when he gets home. Pt verbalizes understanding.
--- NOTE | 2020-12-26 11:41 | DS ---
DATE OF DISCHARGE: 12/09/2020 HOSPITAL COURSE: The patient is a 60-year-old male patient who apparently tested positive for COVID-19 about 9 days prior to admission. His parents both were positive for coronavirus. In fact, his mother at the [facility] recently, however, his and his son were negative. He has been having shortness of breath for the past week prior to admission. He also noted that he was having hard time breathing and it was recommended for him to come to the Emergency Room by his primary care physician via Telehealth. He stated that shortness of breath started worsening over the last 2-3 days prior to admission. He thought that he was starting getting better; however, on the morning of admission, he was having severe shortness of breath. He was unable to walk to the bathroom on his own. When he arrived to the Emergency Room, his oxygen saturation was only 80% on room air. He was extensively investigated in the Emergency Room. His D-dimer was slightly elevated at 1.41 and therefore, he underwent CT angio of the chest, which basically showed no evidence of main lobar or proximal segmental pulmonary emboli. He has bilateral diffuse patchy consolidation and ground-glass opacities, compatible with atypical viral pneumonia. He has mediastinal and hilar lymphadenopathy, likely reactive, some aneurysmal dilatation of the ascending aorta measuring up to 4.6 cm. However, the heart, pericardium and thoracic vessels with mild cardiomegaly and no pericardial effusion. He was admitted and was started on IV antibiotic in the form of ceftriaxone as well as Zithromax, together with steroids and oxygen supplementation. He was seen in consultation by the social services technician as well as the computer science intern. He had a 6-minute walk and a decision was made to discharge him home with home oxygen and to continue antibiotic and a tapering course of steroids and to follow with the social services technician. PHYSICAL EXAMINATION: GENERAL: On the day of discharge, the patient looked well and was clearly in no apparent respiratory distress. No pallor, jaundice, cyanosis or thyromegaly. No jugular venous distension. No limb edema. VITAL SIGNS: His heart rate was 56, blood pressure was 148/76, temperature 97.3, respiratory rate was 16, and oxygen saturation was 96% on 4 liters of oxygen. HEAD, EYES, EARS, NOSE AND THROAT: Showed normocephalic, atraumatic. NECK: Supple. HEART: Normal first and second heart sounds. No gallop or murmur. CHEST: Clear to auscultation. No crepitation or rhonchi. ABDOMEN: Distended, soft, nontender. NEUROLOGIC: He was awake, alert, responding appropriately. All cranial nerves intact. EXTREMITIES: He moves extremities without difficulty. He ambulates without assistance or assistive devices. LABORATORY DATA: His lab work on the day of discharge showed that his white cell count was 10,900, hemoglobin 15.6, hematocrit 46, MCV 91, and platelet count 326,000. Serum sodium was 136, potassium 4.4, chloride 98, bicarbonate 32, anion gap of 6, BUN 27, creatinine 0.9, estimated GFR was 86 mL per minute. His glucose 173, calcium was 8.7. Total bilirubin, AST, ALT, alkaline phosphatase were normal. Total protein was 6.3, albumin was 2.4. His D-dimer was 0.67. DISCHARGE MEDICATIONS: The patient was discharged home to continue on Zithromax 250 mg once a day for 3 more days, cefdinir 300 mg twice a day for 7 days, dexamethasone 6 mg daily in a tapering fashion. He was also discharged on amlodipine 10 mg once a day, omeprazole 20 mg once a day, triamterene/hydrochlorothiazide 75/50 half a tablet daily. FINAL DISCHARGE DIAGNOSES: 1. COVID-19 pneumonia. 2. Possible superimposed community-acquired pneumonia. 3. Acute hypoxic respiratory failure. 4. Hypertension. 5. Morbid obesity. 6. Elevated troponin, likely due to type 2 demand ischemia. CRIS KATHLEEN MD DR: MONICA/jose JOB#: [id number] / [id number]
== END 2020-12-09 17:00 | disposition home or self-care (01) | DRG 177 ==
LOC: 6 SOUTH 21:09
PROVIDERS: ADMIT Internal Medicine; ATTEND Internal Medicine
DX: U07.1 COVID-19 (principal); J12.82 Pneumonia due to coronavirus disease 2019; J96.01 Acute respiratory failure with hypoxia; Z68.42 Body mass index [BMI] 45.0-49.9, adult; Z87.891 Personal history of nicotine dependence; I71.2 Thoracic aortic aneurysm, without rupture; I10 Essential (primary) hypertension; E66.01 Morbid (severe) obesity due to excess calories; Z88.0 Allergy status to penicillin; Z79.899 Other long term (current) drug therapy; Z90.49 Acquired absence of other specified parts of digestive tract; Z83.6 Family history of other diseases of the respiratory system
CPT/HCPCS: 36415; 80053; 84484; 85027; 85379; 90471; 90686; 94618; J0456; J0696; J1100; J1650; J7050; G0378; J7030